=== PATIENT | male | born 1990 | race Caucasian/White ===

== ENCOUNTER 2017-03-02 14:20 | Emergency (ER) | payer OTHER ==
[2017-03-02 14:36] VITALS: BP 122/66
== END 2017-03-02 14:35 | disposition left against medical advice (07) ==
LOC: ER 14:20
DX: Z53.21 Procedure and treatment not carried out due to patient leaving prior to being seen by health care provider (principal)

== ENCOUNTER 2018-06-28 15:28 | Emergency (ER) | END 2018-06-28 15:55 | disposition left against medical advice (07) | LOC: ER 15:28 | DX: Z53.21 Procedure and treatment not carried out due to patient leaving prior to being seen by health care provider (principal) ==